=== PATIENT | female | born 1960 | race African-American/Black ===

== ENCOUNTER 2019-09-12 15:33 | Inpatient (IN) | payer BC, SELFPAY ==
[~2019-09-12 15:33] MED LIST: Iopamidol-370 76% 500 ML 1 ML ONE
[2019-09-12 16:25] LABS: #Basophils 0.1 thou/uL (0.0-0.2); #Eosinphils 0.3 thou/uL (0.0-0.7); #Lymphocytes 3.5 thou/uL (1.20-3.40); #Monocytes 0.6 thou/uL (0.11-0.59); #Neutrophils 5.3 thou/uL (1.40-6.50); %Basophils 1.1 % (0.0-1.0); %Eosinophils 2.7 % (0.0-10.0); %Lymphocytes 35.5 % (21.0-51.0); %Monocytes 6.1 % (0.0-10.0); %Neutrophils 54.6 % (42.0-75.0); Hemoglobin 13.6 g/dL (12.0-16.0); Mean Corpuscular Hemoglobin 30.5 pg (27.0-31.0); Mean Corpuscular Volume 87.2 fL (78.0-98.0); Mean Platelet Volume 8.4 fL (7.4-10.4); Platelet Count 215 thou/uL (130-400); RBC Distribution Width 12.6 % (11.5-14.5); Red Blood Cell (RBC) Count 4.45 mill/uL (4.20-5.40); White Blood Cell (WBC) Count 9.8 thou/uL (4.8-10.8)
[2019-09-12] MEDS ORDERED: Ondansetron PF 4 MG/2 ML Vial ONE (16:41)
[2019-09-12] MEDS ORDERED: Acetaminophen 500 MG TAB ONE (16:41)
[2019-09-12] MEDS ORDERED: Morphine 4 MG/ML VIAL ONE ×2 (16:41→18:31)
[2019-09-12] MEDS ORDERED: Piperacillin/Tazobactam 4.5 GM VIAL ONE (16:41)
[2019-09-12 16:59] LABS: ALT (SGPT) 13 U/L (8-55); AST (SGOT) 14 U/L (5-34); Alkaline Phosphatase 86 U/L (40-110); Anion Gap 10 mmol/L (10-20); BUN (Urea Nitrogen) 10 mg/dL (9.8-20.1); Bilirubin, Total 0.5 mg/dL (0.2-1.2); Calc. Creatinine Clearance 0 mL/min (70-130); Calcium 9.3 mg/dL (7.8-10.44); Carbon Dioxide 29 mmol/L (22-29); Chloride 107 mmol/L (98-107); Estimated GFR-MDRD 85; Globulin 2.9 g/dL (2.4-3.5); Glucose 98 mg/dL (70-105); Lipase 28 U/L (8-78); Potassium 3.5 mmol/L (3.5-5.1); Protein, Total 6.9 g/dL (6.0-8.3); Sodium 142 mmol/L (136-145)
[2019-09-12] MEDS ORDERED: Vancomycin 1.5 GRAM/300 ML BAG 1.5 GM in Premix Bag 1 BAG IVPB SCH (17:15)
--- NOTE | 2019-09-12 18:28 | CT ---
CT ABDOMEN AND PELVIS PERFORMED WITH CONTRAST ENHANCEMENT: History: Patient reportedly has been treated for diverticulitis and developed fever three days ago, d ifficulty urinating, worsening diarrhea. FINDINGS: The lung bases shows atelectatic change. Calcified right hilar lymph nodes are present. The liver, spleen, pancreas, and gallbladder regions appear unremarkable. Right and left adrenal glands and right and left kidneys are normal in size. No obstruction. Slightly prominent extrarenal pelvises bilaterally but the ureters are nondilated. Small periaortic lymph nod es are nonspecific. No evidence of any significant mesenteric adenopathy. The colon is decompressed, but there is suggestion that there may be some mild wall thickening. There is fairly extensive divert icular changes. There are no signs of any diverticular abscess. Minimal fat stranding is seen adjacen t to the junction of the descending sigmoid colon. I cannot exclude that this is some minimal diverti culitis change. No free fluid. The appendix is normal. IMPRESSION: Mostly decompressed colon but there could be some wall thickening, better appreciated in the right an d transverse colon, but perhaps also some changes in the descending colon. This raises the possibilit y of a colitis. There is moderate diverticular disease, particularly of the descending and sigmoid co kael region. Minimal fat stranding at the junction of the descending sigmoid colon could indicate some minimal diverticular change, but there are no signs of abscess. POS: JOSS
[2019-09-12] MEDS ORDERED: Zolpidem Tartrate 5 MG TAB PO PRN (18:37)
[2019-09-12] MEDS ORDERED: Promethazine HCl 25 MG/ML VIAL IM/IV PRN (18:39)
[2019-09-12 19:19] LABS: Bilirubin Negative (Negative); Blood, Urine Negative (Negative); Clarity Clear (Clear); Glucose, Urine (Dipstick) Normal (Negative); Leukocyte Negative Leu/uL (Negative); Nitrite Negative (Negative); Protein, Urine (Dipstick) Negative (Neg-Trace); Urobilinogen Normal mg/dL (Less than 2)
--- NOTE | 2019-09-12 20:10 | HP ---
PRIMARY CARE PROVIDER: [place], [place], the patient does not remember the name of the primary care provider. CHIEF COMPLAINT: Abdominal pain. HISTORY OF PRESENT ILLNESS: Ms. Wilson is a pleasant 59-year-old lady, who was seen at [facility] on September 12, 2019. She reports that she started having abdominal symptoms on August 23, 2019. At that time, she developed abdominal pain, cramps, nausea, diarrhea, and chills. She denies any blood in the stool. She reports eating at [employer] and at [employer] prior to the onset of symptoms. She continued to be symptomatic for a few days and she went to [facility]. She was diagnosed with diverticulitis and started on Augmentin. She finished a 2-week course yesterday. Yesterday, she spiked a fever of 102 degrees Fahrenheit. She continues to have abdominal pain. She also reports nausea. She reports that the pain is mainly crampy in nature and nonradiating, accompanied by nausea and diarrhea and fever. She cannot recall any aggravating or relieving factors. REVIEW OF SYSTEMS: All systems were reviewed and found to be negative except for the pertinent positives mentioned above. PAST MEDICAL HISTORY: Hypertension. SURGICAL HISTORY: Partial hysterectomy. SOCIAL HISTORY: The patient smokes 3 to 4 cigarettes a day. She denies recreational drug use. She reports occasional alcohol use. FAMILY HISTORY: Significant for of her mother from myocardial infarction at age 54. Her brother also has heart disease. Her grandmother also from myocardial infarction. ALLERGIES: SULFA. CURRENT MEDICATIONS: Aspirin 81 mg daily. PHYSICAL EXAMINATION: GENERAL: On examination, Ms. Wilson is awake and alert, not in acute distress. VITAL SIGNS: Blood pressure is 154/94, pulse 82, respiratory rate 15, and oxygen saturation 100% on room air. T-max in the emergency room was 100.3 degrees Fahrenheit. EYES: No scleral icterus. No conjunctival pallor. ENT: Dry mucosal membranes. No oropharyngeal erythema or exudates. NECK: Supple and nontender. Trachea is midline. RESPIRATORY: Accessory muscles of breathing are not active. Chest wall movements are symmetric bilaterally. LUNGS: Clear to auscultation without wheeze, rhonchi, or crepitations. CARDIOVASCULAR: S1 and S2 are heard, regular. Peripheral pulses palpable. ABDOMEN: She has left lower quadrant tenderness. No guarding or rigidity. Bowel sounds are heard. NEUROLOGIC: Cranial nerves 2 through 12 are intact. MUSCULOSKELETAL: Power is 5/5 in all 4 extremities. SKIN: No rashes or subcutaneous nodules. LYMPHATIC: No cervical lymphadenopathy. PSYCHIATRIC: Normal mood. Normal affect. The patient is oriented to person, place, and time. LABORATORY DATA: Ms. Wilson's labs and investigations were reviewed. CBC is unremarkable. Comprehensive metabolic profile and lipase are normal. She also had CT scan of the abdomen and pelvis. The official report is pending. She reportedly had colon wall thickening, moderate diverticulitis, and minimal fat stranding, but no abscess, according to emergency room physician. ASSESSMENT AND PLAN: Ms. Wilson is a pleasant 59-year-old lady, who was seen at [facility] on September 12, 2019. Her problem list includes: 1. Abdominal pain: This is most likely secondary to diverticulitis seen on CT scan. 2. Diarrhea: She has diarrhea and fever. We will check stool studies to rule out infectious etiology. 3. Hypertension: The patient is currently not taking any medications for hypertension. We will monitor vital signs and initiate antihypertensives as needed. 4. Diverticulitis: I will start her on intravenous ciprofloxacin and metronidazole and follow blood cultures. LEVEL OF COMPLEXITY: Moderate. LEVEL OF COMPLEXITY: Moderate. Job ID: [id number]
[2019-09-12 21:26] VITALS: BMI 32.5
[2019-09-12] MEDS: Sodium Chloride 0.9% 1,000 ML IV SCH (21:31)
[2019-09-12] MEDS: metroNIDAZOLE 500 MG in Premix Bag 1 BAG IVPB SCH (21:33)
[2019-09-12] MEDS: Nicotine 14 MG PATCH TD SCH (21:35)
[2019-09-12] MEDS ORDERED: Morphine 2 MG/ML SYRINGE SLOW IVP SCH (22:30)
[2019-09-12] MEDS ORDERED: Ketorolac Tromethamine 30 MG/ML VIAL IVP SCH (22:30)
[2019-09-13] MEDS: metroNIDAZOLE 500 MG in Premix Bag 1 BAG IVPB SCH ×3 (05:25→21:17)
[2019-09-13 05:43] LABS: #Basophils 0.1 thou/uL (0.0-0.2); #Eosinphils 0.3 thou/uL (0.0-0.7); #Lymphocytes 2.6 thou/uL (1.20-3.40); #Monocytes 0.6 thou/uL (0.11-0.59); #Neutrophils 3.8 thou/uL (1.40-6.50); %Basophils 1.2 % (0.0-1.0); %Eosinophils 4.5 % (0.0-10.0); %Lymphocytes 35.5 % (21.0-51.0); %Neutrophils 50.8 % (42.0-75.0); Mean Corpuscular HGB CONC 35.1 g/dL (32.0-36.0); Mean Corpuscular Hemoglobin 30.6 pg (27.0-31.0); Mean Corpuscular Volume 87.1 fL (78.0-98.0); Mean Platelet Volume 8.4 fL (7.4-10.4); Platelet Count 187 thou/uL (130-400); RBC Distribution Width 12.7 % (11.5-14.5); Red Blood Cell (RBC) Count 3.94 mill/uL (4.20-5.40); White Blood Cell (WBC) Count 7.4 thou/uL (4.8-10.8)
[2019-09-13 06:02] LABS: Anion Gap 12 mmol/L (10-20); BUN (Urea Nitrogen) 7 mg/dL (9.8-20.1); Calc. Creatinine Clearance 107 mL/min (70-130); Calcium 8.2 mg/dL (7.8-10.44); Carbon Dioxide 24 mmol/L (22-29); Chloride 110 mmol/L (98-107); Estimated GFR-MDRD Greater than 90; Glucose 84 mg/dL (70-105); Potassium 3.5 mmol/L (3.5-5.1); Sodium 142 mmol/L (136-145)
[2019-09-13] MEDS ORDERED: FLU VACC QS2019-20(6MOS UP)/PF 60 MCG/0.5 ML SYRINGE IM ONE (09:00)
[2019-09-13] MEDS: Enoxaparin Sodium 40 MG/0.4 ML SYRINGE SC SCH (09:29)
[2019-09-13] MEDS: Acetaminophen 325 MG TAB PO PRN ×2 (10:22→20:08)
[2019-09-13] MEDS: Sodium Chloride 0.9% 1,000 ML IV SCH ×2 (10:24→17:51)
--- NOTE | 2019-09-13 12:16 | CON ---
DATE OF CONSULTATION: 09/13/2019 REQUESTING PHYSICIAN: Terrence Clark MD REASON FOR CONSULTATION: Diverticulitis. HISTORY OF PRESENT ILLNESS: Renée Wilson is a very pleasant 59-year-old woman, who was admitted to the hospital last night with continued abdominal pain, diarrhea, and fevers. She has no prior significant gastrointestinal history. She has never undergone colonoscopy. She recently moved to the area. She does smoke. She reports that over two weeks ago, she developed abdominal pain, which is generalized and cramping as well as nausea, intermittent vomiting and significant diarrhea. There has been no blood in the stool, but it often has a mucousy appearance. She was seen elsewhere and treated, it sounds empirically for diverticulitis with a 2-week course of Augmentin. She reports that she really did not have any symptomatic improvement with the antibiotic over the past couple of weeks. She finished that a couple of days ago and presented to the hospital last night with recurrent fever to 102 and continued abdominal pain and diarrhea. A CT scan of the abdomen and pelvis showed moderate diverticulosis, some possible mild thickening in the right colon, some mild fat stranding at the junction of the descending and sigmoid colon and diverticulitis could not be excluded. There was no lymphadenopathy. No other abnormalities. She was started on ciprofloxacin and Flagyl. She has been afebrile since presentation here. Abdominal pain persists. She does not really have any appetite. She has been hemodynamically stable. PAST MEDICAL HISTORY: Hypertension, hernia repair, and partial hysterectomy. ALLERGIES: SULFA. OUTPATIENT MEDICATIONS: Aspirin 81 mg daily. SOCIAL HISTORY: She smokes 3 to 4 cigarettes per day. Alcohol use is occasional. No drug use. FAMILY HISTORY: Negative for GI illness or malignancy. Her mother had an [place]. PHYSICAL EXAMINATION: VITAL SIGNS: Temperature 98.7, pulse 70, blood pressure 120/79, and 92% oxygen saturation on room air. GENERAL: A 59-year-old woman, lying in bed, in no acute distress. SKIN: No jaundice. No rashes were palpable. HEENT: Eyes, no scleral icterus. Extraocular movements intact. ENT, mucous membranes moist. No oral lesions. LYMPH: No submandibular or supraclavicular lymphadenopathy. THYROID: Nontender to palpation. HEART: Regular rate and rhythm. LUNGS: Clear to auscultation bilaterally. ABDOMEN: Nondistended. Bowel sounds are present throughout the abdomen. The abdomen is soft. There is some generalized tenderness to palpation, but no guarding or rebound tenderness. No masses or organomegaly appreciated. EXTREMITIES: No peripheral edema. VESSELS: Radial pulses 2+ bilaterally. NEURO: Cranial nerves 2 through 12 intact bilaterally. No focal deficits. REVIEW OF SYSTEMS: Full review of systems including constitutional, head, eyes, ears, nose, throat, GI, , cardiovascular, respiratory, musculoskeletal, and neurologic systems are negative except as noted in the HPI. LABORATORY STUDIES: WBC 7.4, hemoglobin 12.0, and platelets 187. Sodium 142, potassium 3.5, BUN 7, creatinine 0.74. Lipase only 28. LFTs all normal with total bilirubin 0.5, alkaline phosphatase 86, AST 14, ALT 13, and albumin 4.0. Urinalysis negative. IMAGING STUDIES: CT of the abdomen and pelvis as detailed in the HPI. ASSESSMENT AND PLAN: 1. Left-sided diverticulitis, with symptoms failing to improve after two weeks of Augmentin on an outpatient basis. 2. Abdominal pain, generalized, persistent. 3. Diarrhea, nonbloody, persistent. The patient's imaging findings are indeed most suggestive of left-sided diverticulitis without complications. She had failure to respond to recent two-week course of Augmentin. Other considerations would include other enteric infection or C. difficile given the recent antibiotics. Stool studies have been ordered, and we are going to await those results. I agree with empiric ciprofloxacin and Flagyl in the meantime. If the patient has improvement in symptoms within the next few days, and stool studies are otherwise unrevealing, we will see her back for outpatient followup colonoscopy in 5 to 6 weeks. If the patient fails to improve over the next few days with current treatment and stool studies are otherwise unrevealing, we could potentially consider colonoscopy later this admission. Otherwise, continue supportive care as you are doing. The patient can have a clear liquid diet if she can tolerate it. Thank you for the consultation. Please call back anytime with questions or concerns. Job ID: [id number]
[2019-09-13] MEDS ORDERED: Polyethylene Glycol 3350 17 GM Packet PO PRN (16:40)
[2019-09-13] MEDS: Nicotine 14 MG PATCH TD SCH (17:50)
[2019-09-13] MEDS ORDERED: Morphine 2 MG/ML SYRINGE SLOW IVP PRN (19:30)
[2019-09-13] MEDS ORDERED: Acetaminophen/Codeine 30-300mg Tablet PO PRN (19:31)
--- NOTE | 2019-09-13 19:34 | PDOC.HOSPP ---
- Subjective Encounter Date: 09/13/19 Encounter Time: :20 Subjective: Pt seen for followup re: diverticulitis. c/o ongoing abdo pain. No fevers. - Objective Vital Signs & Weight: Vital Signs (12 hours) Temp Pulse Resp BP Pulse Ox 09/13/19 12:00 98.3 F 65 18 139/83 94 L 09/13/19 08:00 98.7 F 70 12 120/79 92 L Weight Weight 177 lb 14.609 oz I&O: 09/12/19 09/13/19 09/14/19 06:59 06:59 06:59 Intake Total 700 Balance 700 Result Diagrams: 09/13/19 05:28 09/13/19 05:28 Additional Labs: Labs and MARs reviewed by md Hospitalist ROS - Review of Systems Constitutional: denies: fever, chills, sweats, weakness, malaise Cardiovascular: denies: chest pain, palpitations, orthopnea, paroxysmal noc. dyspnea, edema, light headedness Gastrointestinal: reports: abdominal pain. denies: nausea, vomiting, diarrhea, constipation, melena, hematochezia Genitourinary: denies: dysuria, frequency, incontinence, hematuria, retention Musculoskeletal: denies: neck pain, shoulder pain, arm pain, back pain, hand pain, leg pain, foot pain - Medication Medications: Active Medications Generic Name Dose Route Start Last Admin Trade Name Freq PRN Reason Stop Dose Admin Acetaminophen 650 mg 09/12/19 18:37 09/13/19 10:22 Tylenol PO 650 mg Q4H PRN Administration Headache/Fever/Mild Pain (1-3) Enoxaparin Sodium 40 mg 09/13/19 09:00 09/13/19 09:29 Lovenox SC 40 mg 0900 OLI Administration Ciprofloxacin/Dextrose 400 mg/ 200 mls @ 200 mls/hr 09/12/19 21:00 09/13/19 09:29 Device IVPB 200 mls Q12HR OLI Administration Metronidazole 500 mg/ Device 100 mls @ 100 mls/hr 09/12/19 22:00 09/13/19 14: 31 IVPB 100 mls Q8HR OLI Administration Sodium Chloride 1,000 mls @ 70 mls/hr 09/12/19 18:45 09/13/19 17:51 Normal Saline 0.9% IV 1,000 mls .[id number] OLI Administration Nicotine 14 mg 09/12/19 19:00 09/13/19 17:50 Nicoderm Patch TD 14 mg Q24HR OLI Administration Polyethylene Glycol 17 gm 09/13/19 16:40 09/13/19 17:48 Miralax PO 17 gm DAILYPRN PRN Administration Constipation - Exam General - other findings: Obese Eye: anicteric sclera ENT: moist mucosa Neck: supple, symmetric, no JVD, no thyromegaly Heart: RRR, no gallops, no rubs, normal peripheral pulses Respiratory: CTAB, no wheezes, no rales, no ronchi Gastrointestinal: soft, normal bowel sounds, no guarding, no rigidity, tender to palpation Extremities: no cyanosis Psychiatric: normal affect, normal behavior, A&O x 3 Hosp A/P (1) Diverticulitis Code(s): K57.92 - DVTRCLI OF INTEST, PART UNSP, W/O PERF OR ABSCESS W/O BLEED Status: Acute (2) Abdominal pain Code(s): R10.9 - UNSPECIFIED ABDOMINAL PAIN Status: Acute (3) Tobacco abuse Code(s): Z72.0 - TOBACCO USE Status: Chronic - Plan continue antibiotics, out of bed/ambulate Continue IV ciprofloxacin and IV metronidazole. Pt is on clear liquid diet. Add PRN IV morphine and tramadol and tylenol #3 for abdo pain. Continue nicotine patch.
[2019-09-13] MEDS: traMADol HCl 50 MG TAB PO PRN (20:07)
[2019-09-14] MEDS: metroNIDAZOLE 500 MG in Premix Bag 1 BAG IVPB SCH ×2 (05:20→14:19)
[2019-09-14] MEDS: Acetaminophen/Codeine 30-300mg Tablet PO PRN ×2 (05:20→14:20)
[2019-09-14 05:50] LABS: #Basophils 0.1 thou/uL (0.0-0.2); #Eosinphils 0.3 thou/uL (0.0-0.7); #Lymphocytes 2.6 thou/uL (1.20-3.40); #Monocytes 0.5 thou/uL (0.11-0.59); %Basophils 1.1 % (0.0-1.0); %Lymphocytes 46.9 % (21.0-51.0); %Monocytes 9.5 % (0.0-10.0); %Neutrophils 36.5 % (42.0-75.0); Hemoglobin 12.2 g/dL (12.0-16.0); Mean Corpuscular HGB CONC 34.2 g/dL (32.0-36.0); Mean Corpuscular Volume 87.6 fL (78.0-98.0); Mean Platelet Volume 8.8 fL (7.4-10.4); Platelet Count 203 thou/uL (130-400); RBC Distribution Width 12.6 % (11.5-14.5); Red Blood Cell (RBC) Count 4.07 mill/uL (4.20-5.40); White Blood Cell (WBC) Count 5.5 thou/uL (4.8-10.8)
[2019-09-14 06:10] LABS: Anion Gap 11 mmol/L (10-20); BUN (Urea Nitrogen) 4 mg/dL (9.8-20.1); Calc. Creatinine Clearance 105 mL/min (70-130); Calcium 8.3 mg/dL (7.8-10.44); Carbon Dioxide 27 mmol/L (22-29); Chloride 108 mmol/L (98-107); Estimated GFR-MDRD Greater than 90; Glucose 86 mg/dL (70-105); Potassium 3.7 mmol/L (3.5-5.1); Sodium 142 mmol/L (136-145)
[2019-09-14] MEDS: Aspirin Chewable 81 MG TAB PO SCH (08:38)
[2019-09-14] MEDS: Enoxaparin Sodium 40 MG/0.4 ML SYRINGE SC SCH (08:38)
[2019-09-14] MEDS: Vancomycin HCl 25 MG/ML Oral PO SCH ×3 (11:34→22:40)
[2019-09-14] MEDS: Sodium Chloride 0.9% 1,000 ML IV SCH (12:27)
[2019-09-14] MEDS: traMADol HCl 50 MG TAB PO PRN (14:19)
--- NOTE | 2019-09-14 14:37 | PRG ---
DATE OF SERVICE: 09/14/2019 SUBJECTIVE: Ms. Wilson continues to have cramping abdominal pain. She has had one bowel movement so far today. She is tolerating her liquid diet, feeling a little bit more hungry. No nausea. She has remained afebrile. Stool studies came back positive for C difficile antigen and toxin. OBJECTIVE: VITAL SIGNS: Temperature 98.6, pulse 69, blood pressure 129/84, and 94% oxygen saturation on room air. GENERAL: No acute distress. HEART: Regular rate and rhythm. LUNGS: Clear to auscultation bilaterally. ABDOMEN: Bowel sounds are present. Soft. Some tenderness to palpation throughout. No masses or organomegaly. No guarding or rebound tenderness. EXTREMITIES: No peripheral edema. LABORATORY STUDIES: Sodium 142, potassium 3.7, BUN 4, creatinine 0.75, calcium 8.3. WBC 5.5, hemoglobin 12.2, platelets 203. Clostridium difficile antigen and toxin both positive. Stool culture is pending. ASSESSMENT AND PLAN: 1. Clostridium difficile infection. 2. Abdominal pain, likely secondary to Clostridium difficile. 3. Diarrhea, likely secondary to Clostridium difficile. I discussed the results with the patient. Dr. Clark has already ordered for her to start on oral vancomycin. I would recommend she stay on 125 mg p.o. four times daily for a 2-week course. Expect symptoms to gradually improve on therapy. We discussed that it is unclear whether this was always C difficile, or whether she might have had real diverticulitis, with C difficile being a complication of her Augmentin therapy, which she just recently treated. Regardless, it does seem the C difficile is the primary issue right now. Diet can be advanced as tolerated. IV antibiotics can likely be discontinued. GI will sign off, and I will plan to see her back in clinic in the next month or so. Please call back anytime with questions or concerns. Job ID: [id number]
[2019-09-14] MEDS: Dicyclomine 10 MG CAP PO SCH ×2 (17:06→19:59)
[2019-09-14] MEDS ORDERED: Saccharomyces boulardii 250 MG CAP PO SCH (19:00)
--- NOTE | 2019-09-14 19:04 | PDOC.HOSPP ---
- Subjective Encounter Date: 09/14/19 Encounter Time: 09:40 Subjective: Pt seen for followup re: clostridium difficile infection. Abdo pain+ - Objective Vital Signs & Weight: Vital Signs (12 hours) Temp Pulse Resp BP Pulse Ox 09/14/19 07:43 98.6 F 69 20 129/84 94 L Weight Weight 177 lb 14.609 oz I&O: 09/13/19 09/14/19 09/15/19 06:59 06:59 06:59 Intake Total 700 1250 Balance 700 1250 Result Diagrams: 09/14/19 05:14 09/14/19 05:14 Additional Labs: Labs and MARs reviewed by wi Hospitalist ROS - Review of Systems Cardiovascular: denies: chest pain, palpitations, orthopnea, paroxysmal noc. dyspnea, edema, light headedness Gastrointestinal: reports: abdominal pain. denies: nausea, vomiting, diarrhea, constipation, melena, hematochezia - Medication Medications: Active Medications Generic Name Dose Route Start Last Admin Trade Name Freq PRN Reason Stop Dose Admin Acetaminophen 650 mg 09/12/19 18:37 09/13/19 20:08 Tylenol PO 650 mg Q4H PRN Administration Headache/Fever/Mild Pain (1-3) Acetaminophen/Codeine Phosphate 1 tab 09/13/19 19:31 09/14/19 14:20 Tylenol #3 PO 1 tab Q6H PRN Administration Pain 4-6 Aspirin 81 mg 09/14/19 09:00 09/14/19 08:38 Aspirin Chewable PO 81 mg DAILY OLI Administration Dicyclomine HCl 10 mg 09/14/19 17:00 09/14/19 17:06 Bentyl PO 10 mg QID OLI Administration Enoxaparin Sodium 40 mg 09/13/19 09:00 09/14/19 08:38 Lovenox SC 40 mg 0900 OLI Administration Metronidazole 500 mg/ Device 100 mls @ 100 mls/hr 09/12/19 22:00 09/14/19 14: 19 IVPB 100 mls Q8HR OLI Administration Sodium Chloride 1,000 mls @ 70 mls/hr 09/12/19 18:45 09/14/19 12:27 Normal Saline 0.9% IV 1,000 mls .[id number] OLI Administration Morphine Sulfate 2 mg 09/13/19 19:30 09/14/19 08:46 Morphine SLOW IVP 2 mg Q6H PRN Administration Pain Nicotine 14 mg 09/12/19 19:00 09/13/19 17:50 Nicoderm Patch TD 14 mg Q24HR OLI Administration Polyethylene Glycol 17 gm 09/13/19 16:40 09/13/19 17:48 Miralax PO 17 gm DAILYPRN PRN Administration Constipation Promethazine HCl 25 mg 09/12/19 18:39 09/14/19 17:17 Phenergan IM/IV 25 mg Q6H PRN Administration Nausea/Vomiting Sodium Chloride 10 ml 09/14/19 09:00 09/14/19 09:46 Flush - Normal Saline IVF 10 ml Q12HR OLI Administration Tramadol HCl 50 mg 09/13/19 16:40 09/14/19 14:19 Ultram PO 50 mg Q6H PRN Administration Pain>4 Vancomycin HCl 125 mg 09/14/19 10:00 09/14/19 17:06 First Vancomycin PO 125 mg Q6H OLI Administration Zolpidem Tartrate 5 mg 09/12/19 18:37 09/13/19 20:10 Ambien PO 5 mg HSPRN PRN Administration Insomnia - Exam General - other findings: Obese Eye: anicteric sclera ENT: moist mucosa Neck: supple Heart: RRR Respiratory: CTAB, no rales, no ronchi Gastrointestinal: soft, no guarding, no rigidity, tender to palpation Psychiatric: normal affect, normal behavior Hosp A/P (1) Clostridium difficile infection Code(s): A49.8 - OTHER BACTERIAL INFECTIONS OF UNSPECIFIED SITE Status: Acute (2) Diverticulitis Code(s): K57.92 - DVTRCLI OF INTEST, PART UNSP, W/O PERF OR ABSCESS W/O BLEED Status: Acute (3) Abdominal pain Code(s): R10.9 - UNSPECIFIED ABDOMINAL PAIN Status: Acute (4) Tobacco abuse Code(s): Z72.0 - TOBACCO USE Status: Chronic - Plan Start pt on enteral vancomycin, Florastor Discontinue IV ciprofloxacin and IV metronidazole. Advance diet as tolerated. Continue nicotine patch.
[2019-09-14] MEDS: Nicotine 14 MG PATCH TD SCH (19:59)
[2019-09-14 20:45] VITALS: BP 122/73; TEMP 98
[2019-09-15] MEDS: Sodium Chloride 0.9% 1,000 ML IV SCH (02:26)
[2019-09-15] MEDS: Vancomycin HCl 25 MG/ML Oral PO SCH ×2 (04:26→10:58)
[2019-09-15 05:41] LABS: #Basophils 0.1 thou/uL (0.0-0.2); #Eosinphils 0.3 thou/uL (0.0-0.7); #Lymphocytes 2.6 thou/uL (1.20-3.40); #Monocytes 0.5 thou/uL (0.11-0.59); #Neutrophils 2.9 thou/uL (1.40-6.50); %Basophils 1.5 % (0.0-1.0); %Eosinophils 4.3 % (0.0-10.0); %Lymphocytes 40.3 % (21.0-51.0); %Monocytes 8.1 % (0.0-10.0); %Neutrophils 45.8 % (42.0-75.0); Hemoglobin 12.7 g/dL (12.0-16.0); Mean Corpuscular Volume 86.1 fL (78.0-98.0); Mean Platelet Volume 8.6 fL (7.4-10.4); Platelet Count 225 thou/uL (130-400); RBC Distribution Width 12.5 % (11.5-14.5); White Blood Cell (WBC) Count 6.4 thou/uL (4.8-10.8)
[2019-09-15 06:01] LABS: Anion Gap 12 mmol/L (10-20); BUN (Urea Nitrogen) 8 mg/dL (9.8-20.1); Calc. Creatinine Clearance 101 mL/min (70-130); Calcium 8.4 mg/dL (7.8-10.44); Carbon Dioxide 24 mmol/L (22-29); Chloride 108 mmol/L (98-107); Estimated GFR-MDRD Greater than 90; Glucose 82 mg/dL (70-105); Potassium 3.6 mmol/L (3.5-5.1); Sodium 140 mmol/L (136-145)
[2019-09-15] MEDS ORDERED: Saccharomyces boulardii 250 MG CAP PO SCH (09:00)
[2019-09-15] MEDS: Dicyclomine 10 MG CAP PO SCH ×2 (09:07→14:22)
[2019-09-15] MEDS: Aspirin Chewable 81 MG TAB PO SCH (09:07)
[2019-09-15] MEDS: Enoxaparin Sodium 40 MG/0.4 ML SYRINGE SC SCH (09:08)
--- NOTE | 2019-09-15 12:34 | DIS ---
DATE OF ADMISSION: 09/12/2019 DATE OF DISCHARGE: 09/15/2019 PRIMARY CARE PROVIDER: Unknown. DISCHARGE DIAGNOSES: 1. Clostridium difficile diarrhea. 2. Diverticulitis. 3. Obesity. 4. Colonic wall thickening. CONDITION OF THE PATIENT ON THE DAY OF DISCHARGE: Stable. I assessed Ms. Wilson on the day of discharge. She denies any chest pain or shortness of breath. Diarrhea has improved. Vital signs are stable. S1 and S2 are heard, regular. Lungs are clear to auscultation bilaterally. CONSULTATIONS DURING THIS HOSPITALIZATION: Gastroenterology, Dr. Terrence Burnette. DISCHARGE MEDICATIONS: 1. Aspirin 81 mg daily. 2. Nicotine 14 mg patch daily. 3. Dicyclomine 10 mg 4 times a day as needed. 4. Florastor 250 mg daily for nine days. 5. Vancomycin 125 mg 4 times a day for nine days. HOSPITAL COURSE: Ms. Wilson is a pleasant 59-year-old lady, who was admitted to [facility] on September 12, 2019, for abdominal pain and diarrhea. CT scan of the abdomen and pelvis showed mostly decompressed colon, but some changes suggestive of colitis. She also had moderate diverticular disease. There was no sign of abscess. She was initially started on intravenous ciprofloxacin and metronidazole. Stool studies were negative for Campylobacter and shiga toxins. Preliminary blood cultures are negative at the time of this dictation. Final urine culture was negative. Stool Clostridium difficile test was positive for antigen and toxin. Antibiotics were deescalated, and she has been started on oral vancomycin and Florastor. She is slowly improving at the time of this discharge. She is advised to follow up with primary care provider and with Gastroenterology Service. On the day of discharge, she has sodium 140, potassium 3.6, creatinine 0.78, white count 6400, hemoglobin 12.7, and platelet count 225,000. Many thanks for allowing me to participate in your patient's care. Please feel free to contact me with any questions or concerns. POST-ACUTE CARE FOLLOWUP: With primary care provider in 3 days and with Gastroenterology, Dr. Burnette, in one month. DIET: Regular diet. ACTIVITY: No restrictions. DISCHARGE DESTINATION: Home. TIME SPENT: Total amount of time spent coordinating this discharge: 33 minutes. Job ID: [id number]
== END 2019-09-15 15:02 | disposition home or self-care (01) | DRG 372 ==
LOC: ERS 15:33 → T4-B 19:55
PROVIDERS: ADMIT Internal Medicine; ATTEND Internal Medicine
DX: A04.72 Enterocolitis due to Clostridium difficile, not specified as recurrent (principal); K57.32 Diverticulitis of large intestine without perforation or abscess without bleeding; I10 Essential (primary) hypertension; E66.9 Obesity, unspecified; F17.210 Nicotine dependence, cigarettes, uncomplicated; Z88.2 Allergy status to sulfonamides; Z79.82 Long term (current) use of aspirin; Z90.712 Acquired absence of cervix with remaining uterus; Z68.32 Body mass index [BMI] 32.0-32.9, adult
CPT/HCPCS: 36415; 36416; 74177; 80048; 80053; 81003; 83605; 83690; 85025; 87040; 87045; 87046; 87086; 87324; 87427; 87449; 93005; 96361; 96365; 96367; 96375; 96376; J0744; J1650; J2270; J2405; J2543; J2550; Q9967

== ENCOUNTER 2020-11-25 10:57 | Emergency (ER) | payer BC ==
[2020-11-25 11:32] LABS: Hemoglobin 15.6 g/dL (12.0-16.0); Mean Corpuscular HGB CONC 35.2 g/dL (32.0-36.0); Mean Corpuscular Hemoglobin 31.4 pg (27.0-31.0); Mean Corpuscular Volume 89.3 fL (78.0-98.0); Mean Platelet Volume 8.8 fL (7.4-10.4); Platelet Count 218 thou/uL (130-400); Red Blood Cell (RBC) Count 4.96 mill/uL (4.20-5.40)
[2020-11-25 11:45] LABS: ALT (SGPT) 11 U/L (8-55); AST (SGOT) 16 U/L (5-34); Albumin 4.4 g/dL (3.5-5.0); Alkaline Phosphatase 85 U/L (40-110); Anion Gap 12 mmol/L (10-20); BUN (Urea Nitrogen) 12 mg/dL (9.8-20.1); Bilirubin, Total 0.4 mg/dL (0.2-1.2); Calc. Creatinine Clearance 0 mL/min (70-130); Calcium 9.7 mg/dL (7.8-10.44); Carbon Dioxide 29 mmol/L (22-29); Chloride 104 mmol/L (98-107); Globulin 3.1 g/dL (2.4-3.5); Glucose 91 mg/dL (70-105); Potassium 4.1 mmol/L (3.5-5.1); Protein, Total 7.5 g/dL (6.0-8.3); Sodium 141 mmol/L (136-145)
[2020-11-25 11:50] LABS: Lymphocytes 36 % (21-51); MDiff Complete? YES; Monocytes 3 % (0-10); Neutrophil 37 % (42-75); Platelet Morphology Comment Appears Adequate; RBC Morphology Normal; Reactive Lymphocytes 24 % (0-10)
[2020-11-25 12:15] LABS: CK (CPK) 79 U/L (29-168); Lipase 32 U/L (8-78)
== END 2020-11-25 12:43 | disposition home or self-care (01) ==
LOC: ERS 10:57
DX: R07.89 Other chest pain (principal); F17.210 Nicotine dependence, cigarettes, uncomplicated; I10 Essential (primary) hypertension; Z79.82 Long term (current) use of aspirin
CPT/HCPCS: 71045; 80053; 82550; 83690; 83880; 84484; 85025; 93005